=== PATIENT | male | born 1970 | race Caucasian/White ===

== ENCOUNTER 2017-10-22 09:54 | Emergency (ER) | payer SELFPAY ==
[2017-10-22 10:02] VITALS: BP 153/113
--- NOTE | 2017-10-22 11:30 | Emergency Department Report ---
HPI - General Chief Complaint: Extremity Problem,Nontraumatic Time Seen by Provider: 10/22/17 11:16 - [facility] HPI: Patient is a 46-year-old male with no prior medical history who presents to ED complaining of bilateral knee pain for the past 2 weeks. Patient states the pain is gotten worse and the fact that when he stands for about an hour or 2 he starts to get pain in his anterior and posterior knee. Patient states a couple days ago he got knee braces from [employer] and started wearing them to help with the pain. He denies any redness or swelling of the knees He denies any known history of arthritis or gout. Denies taking any medications. Patient also complains of lumbar back pain for the past 5 months. He denies any injuries, trauma or fall ED Past Medical Hx - Past Medical History Previous Medical History?: No - Surgical History Past Surgical History?: No - Social History Smoking Status: Current Some Day Smoker Substance Use Type: None - Medications Home Medications: Home Medications Medication Instructions Recorded Confirmed Last Taken Type Naproxen [Naprosyn TAB] 500 mg PO BID #30 tablet 10/22/17 Unknown Rx ED Review of Systems ROS: Stated complaint: KNEE PAIN Other details as noted in HPI Constitutional: denies: chills, fever Eyes: denies: eye pain, eye discharge, vision change ENT: denies: ear pain, throat pain Respiratory: denies: cough, shortness of breath, wheezing Cardiovascular: denies: chest pain, palpitations Endocrine: no symptoms reported Gastrointestinal: denies: abdominal pain, nausea, diarrhea Genitourinary: denies: urgency, dysuria Musculoskeletal: arthralgia. denies: back pain, joint swelling Skin: denies: rash, lesions Neurological: denies: headache, weakness, paresthesias Psychiatric: denies: anxiety, depression Hematological/Lymphatic: denies: easy bleeding, easy bruising Physical Exam - Physical Exam Vital Signs: Vital Signs 10/22/17 09:58 Temperature 98.6 F Pulse Rate 71 Respiratory 16 Rate Blood Pressure 153/113 O2 Sat by Pulse 99 Oximetry Physical Exam: GENERAL: Alert and oriented x3, no apparent distress, Normal Gait, atraumatic. HEAD: Head is normocephalic and a-traumatic. LUNGS: Symetrical with respiration, No wheezing, no rales or crackles, CTAB. HEART: S1, S2 present, regular rate and rhythm without murmur, no rubs, no gallops. Non tender to palpation BACK: Full range of motion, no spinal tenderness, nontender to palpation. EXTREMITIES/MUSCULOSKELETAL: No cyanosis, clubbing, rash, lesions or edema in all large joints bilaterally. Full ROM bilaterally. UE/LE Pulses 2+ bilaterally. LE and UE 5+ strength bilaterally, straight leg raise negative bilaterally. Patient able to flex and extend bilateral knees with no problems. Nontender to palpation bilateral knees NEUROLOGIC: The patient is cooperative with no focal neurologic deficits. Normal speech. Normal sensation in bilateral upper and lower extremities, No loss of sensation, SKIN: Warm and dry, No lesions, No ulceration or induration present. ED Course Vital Signs 10/22/17 09:58 Temperature 98.6 F Pulse Rate 71 Respiratory 16 Rate Blood Pressure 153/113 O2 Sat by Pulse 99 Oximetry ED Medical Decision Making - Radiology Data Radiology results: report reviewed, image reviewed Fluoro Time In Minutes: XRAY BILATERAL KNEE THREE VIEWS EACH: 10/22/17 09:54:00 CLINICAL: Bilateral knee pain and swelling. FINDINGS: Right: Moderate osteopenia. No fracture or dislocation. Normal joint spaces. No joint effusion. Normal soft tissues. Left: Normal joint spaces. No joint effusion. No fracture or dislocation. Normal soft tissues. IMPRESSION: Osteopenia but otherwise normal. Transcribed By: REF Dictated By: NEHA MICHAELS MD Electronically Authenticated By: NEHA MICHAELS MD Signed Date/Time: 10/22/17 1220 - Medical Decision Making 46-year-old female presents to ED with knee pain ED course: Patient received x-rays in the ED. Lumbar x-rays and knee x-rays taken, series and above no acute abnormalities Vital signs are normal patient is in no acute distress Discussed with patient follow-up with primary care physician. Discussed the patient and take medications as prescribed. Patient has no neurological deficit. Patient is alert and oriented 3 and understands all instructions given. Discussed drowsiness effect of Flexeril makes her drowsy and not to operate machinery while taking flexeril Critical care attestation.: If time is entered above; I have spent that time in minutes in the direct care of this critically ill patient, excluding procedure time. ED Disposition Clinical Impression: Knee pain, bilateral Qualifiers: Chronicity: chronic Qualified Code(s): M25.561 - Pain in right knee; M25.562 - Pain in left knee; G89.29 - Other chronic pain Osteopenia Qualifiers: Osteopenia location: lower leg Laterality: bilateral Qualified Code(s): M85.861 - Other specified disorders of bone density and structure, right lower leg; M85.862 - Other specified disorders of bone density and structure, left lower leg Disposition: TO HOME OR SELFCARE Is pt being admited?: No Does the pt Need Aspirin: No Condition: Stable Instructions: Arthralgia (ED), Knee Pain (ED), Osteoarthritis (ED) Additional Instructions: Make sure to follow up with the primary care physician as discussed. Take all your medications as you've been prescribed. If you have any worsening symptoms or develop new symptoms please return to ED immediately. Prescriptions: Naproxen [Naprosyn TAB] 500 mg PO BID #30 tablet Referrals: PRIMARY MD MAGNO [Primary Care Provider] - 3-[address] MD [Referring] - 3-5 Days [facility] [Provider Group] - 3-5 Days Forms: Work/School Release Form(ED) Time of Disposition: 13:41
--- NOTE | 2017-10-22 12:41 | XRay Report ---
XRAY BILATERAL KNEE THREE VIEWS EACH: 10/22/17 09:54:00 CLINICAL: Bilateral knee pain and swelling. FINDINGS: Right: Moderate osteopenia. No fracture or dislocation. Normal joint spaces. No joint effusion. Normal soft tissues. Left: Normal joint spaces. No joint effusion. No fracture or dislocation. Normal soft tissues. IMPRESSION: Osteopenia but otherwise normal.
--- NOTE | 2017-10-22 12:42 | XRay Report ---
XRAY LUMBAR SPINE THREE VIEWS: 10/22/17 09:54:00 CLINICAL: Back pain. FINDINGS: Normal vertebral body height, alignment and disk spaces. The pedicles are intact. No fracture. Calcification of the abdominal aorta. IMPRESSION: Normal lumbar spine.
== END 2017-10-22 14:18 | disposition home or self-care (01) ==
LOC: ED 09:54
DX: M85.861 Other specified disorders of bone density and structure, right lower leg (principal); M85.862 Other specified disorders of bone density and structure, left lower leg; G89.29 Other chronic pain; F17.200 Nicotine dependence, unspecified, uncomplicated
CPT/HCPCS: 72100; 99283